=== PATIENT | female | born 1990 | race Two or more races ===

== ENCOUNTER 2018-11-21 14:40 | Emergency (ER) | payer OTHER ==
[~2018-11-21] VITALS: Ht 165.1 cm; Wt 136.1 kg
== END 2018-11-21 20:58 | disposition home or self-care (01) ==
LOC: ER 14:40
DX: R10.2 Pelvic and perineal pain (principal)

== ENCOUNTER 2022-04-10 01:32 | Emergency (ER) | payer OTHER ==
[~2022-04-10] VITALS: Ht 167.6 cm; Wt 144.7 kg
[2022-04-10] MEDS ORDERED: LIPITOR20 MG PO (02:01)
[2022-04-10] MEDS ORDERED: ZESTRIL10 M1 PO (02:01)
[2022-04-10] MEDS ORDERED: METFORMIN HCL500 M3 (02:01)
== END 2022-04-10 04:04 | disposition home or self-care (01) ==
LOC: ER 01:32
DX: R07.89 Other chest pain (principal); F41.9 Anxiety disorder, unspecified; Z88.6 Allergy status to analgesic agent